=== PATIENT | male | born 1985 | race Caucasian/White ===

== ENCOUNTER 2017-02-22 15:11 | Emergency (ER) | payer BC, MEDICAID ==
[2017-02-22] MEDS ORDERED: Thiamine IV 100 MG, Folic Acid IV* 1 MG, Multiple Vitamin IV ADULT* 10 ML in D5NS 0.9% ... IV ONE (15:57)
[2017-02-22 16:47] LABS: Hematocrit 45 % (42-52); Red Blood Count 4.79 10^6/ul (4.0-5.4)
[2017-02-22 16:48] LABS: ABS Basophils 0.1 10^3/ul (0-0.2); ABS Eosinophils 0 10^3/ul (0-0.6); ABS Lymphocytes 2.6 10^3/ul (1.0-4.8); ABS Monocytes 0.6 10^3/ul (0-0.8); ABS Neutrophils 7.8 10^3/ul (1.5-7.7); ABS Nucleated RBC 0 10^3/ul; Eosinophil % 0.3 % (0-6); Lymphocyte % 23.2 % (25-47); Mean Corpuscular HGB Conc 35 g/dl (31-36); Mean Corpuscular Hemoglobin 33 pg (27-31); Mean Corpuscular Volume 95 fL (80-94); Mean Platelet Volume 7 um3 (7.4-10.4); Nucleated Red Blood Cells % 0; Platelet Count 267 10^3/ul (150-450); Red Cell Distribution Width 13 % (10.5-15)
[2017-02-22 17:35] VITALS: BP 150/97
[2017-02-22 18:55] LABS: Urine Appearance Clear; Urine Blood 1+ (Negative); Urine Color Yellow; Urine Ketones Trace (Negative); Urine Protein Negative (Negative); Urine Specific Gravity 1.013 (1.010-1.030); Urine Urobilinogen Negative (Negative)
[2017-02-22] MEDS ORDERED: LORazepam TAB(*) 1 MG PO ONE ×2 (19:06→19:07)
--- NOTE | 2017-02-22 22:28 | ED ---
Cyrus Sandhu Stephanie, scribed for Arleth Sue MD on 02/22/17 at 1913 . Substance Abuse/Use - HPI Summary HPI Summary: Pt is a 31 y/o M presenting to the ED with ETOH abuse and request for detox. Pt denies SI. He went to [facility] a few months ago to detox but began to drink again soon after. His HR is currently 122 BPM. Pt states that he wants to go home. Mike Garcia is the patient's roommate and brought pt to the ED and will pt pt's ride home. Measured ETOH level is 0.329 in the ED. - History Of Current Complaint Chief Complaint: EDDetoxRequest Stated Complaint: DETOX Time Seen by Provider: 02/22/17 15:57 Hx Obtained From: Patient Onset/Duration of Drug/ETOH Abuse: Hours Ingestion History: Type/Name Of Drug - ETOH Overdose Characteristics: Oral Timing Of Abuse: Binge Use Severity Initially: Moderate Severity Currently: Mild Character: Frustrated Aggravating Factor(s): Nothing Alleviating Factor(s): Nothing Associated Signs And Symptoms: Negative Related Hx: Drug/Alcohol Last Used @ - 02/23/16 - Allergies/Home Medications Allergies/Adverse Reactions: Allergies Allergy/AdvReac Type Severity Reaction Status Date / Time No Known Allergies Allergy Verified 02/22/17 17:42 PMH/Surg Hx/FS Hx/Imm Hx Previously Healthy: No - alcohol abuse and failed rehab Sensory History: Denies: Hx Legally Blind EENT History: Denies: Hx Deafness - Surgical History Surgery Procedure, Year, and Place: none Infectious Disease History: No Infectious Disease History: Denies: Traveled Outside the [place] in Last 30 Days - Family History Known Family History: Positive: Unknown - Pt denies family history when asked, both parents alive and well , Other - alcoholism - Social History Occupation: Employed Part-time - insurance professional Lives: Dormitory/Roommates Alcohol Use: Daily Substance Use Type: Reports: None Hx Tobacco Use: No Review of Systems Positive: Other - tachycardia . Negative: Fever Cardiovascular: Negative Respiratory: Negative Skin: Negative Negative: Slurred Speech Negative: Anxious All Other Systems Reviewed And Are Negative: Yes Physical Exam - Summary Physical Exam Summary: Appearance: well-appearing, no pain distress, Well-nourished, tachycardic, not tremulous Skin: Warm, color reflects adequate perfusion Head: Normal Head/Face inspection Eyes: Conjunctiva clear ENT: Normal inspection Neck: Supple, no nodes, no JVD. Respiratory: Lungs clear, Normal breath sounds, no respiratory distress Cardio: RRR, No murmur, pulses normal, brisk capillary refill Abdomen: soft, nontender Bowel sounds: present Musculoskeletal: Strength Intact/ ROM intact. No calf tenderness. No edema. Neuro: Alert, muscle tone normal, facial symmetry, speech normal, sensory/motor intact, Not tremulous Psychological: Normal, Thoughts are coherent, clinically sober, speech is clear , gait is steady. Triage Information Reviewed: Yes Vital Signs On Initial Exam: Initial Vitals Temp Pulse Resp BP Pulse Ox 98.6 F 135 22 148/106 94 02/22/17 15:15 02/22/17 15:15 02/22/17 15:15 02/22/17 15:15 02/22/17 15:15 Vital Signs Reviewed: Yes - [place] Coma Scale Coma Scale Total: 15 Diagnostics - Vital Signs Vital Signs Temp Pulse Resp BP Pulse Ox 02/22/17 18:00 19 02/22/17 17:00 150/97 02/22/17 16:30 146/103 02/22/17 16:07 98.7 F 138 22 151/99 96 02/22/17 15:15 98.6 F 135 22 148/106 94 - Laboratory Lab Results: Lab Results 02/22/17 02/22/17 02/22/17 Range/Units 16:35 16:35 16:35 WBC 11.0 H (3.5-10.8) 10^3/ul RBC 4.79 (4.0-5.4) 10^6/ul Hgb 16.0 (14.0-18.0) g/dl Hct 45 (42-52) % MCV 95 H (80-94) fL MCH 33 H (27-31) pg MCHC 35 (31-36) g/dl RDW 13 (10.5-15) % Plt Count 267 (150-450) 10^3/ul MPV 7 L (7.4-10.4) um3 Neut % (Auto) 70.7 (38-83) % Lymph % (Auto) 23.2 L (25-47) % [place] % (Auto) 5.0 (1-9) % Eos % (Auto) 0.3 (0-6) % Baso % (Auto) 0.8 (0-2) % Absolute Neuts (auto) 7.8 H (1.5-7.7) 10^3/ul Absolute Lymphs (auto) 2.6 (1.0-4.8) 10^3/ul Absolute Monos (auto) 0.6 (0-0.8) 10^3/ul Absolute Eos (auto) 0 (0-0.6) 10^3/ul Absolute Basos (auto) 0.1 (0-0.2) 10^3/ul Absolute Nucleated RBC 0 10^3/ul Nucleated RBC % 0 Sodium 142 (133-145) mmol/L Potassium 3.6 (3.5-5.0) mmol/L Chloride 103 (101-111) mmol/L Carbon Dioxide 26 (22-32) mmol/L Anion Gap 13 H (2-11) mmol/L BUN 12 (6-24) mg/dL Creatinine 0.94 (0.67-1.17) mg/dL Est GFR ( Amer) 119.6 (>60) Est GFR (Non-Af Amer) 93.0 (>60) BUN/Creatinine Ratio 12.8 (8-20) Glucose 89 (70-100) mg/dL Lactic Acid 3.4 H* (0.5-2.0) mmol/L Calcium 9.0 (8.6-10.3) mg/dL Total Bilirubin 0.50 (0.2-1.0) mg/dL AST 23 (13-39) U/L ALT 16 (7-52) U/L Alkaline Phosphatase 53 (34-104) U/L Total Creatine Kinase 164 (10-223) U/L Total Protein 7.4 (6.4-8.9) g/dL Albumin 4.2 (3.2-5.2) g/dL Globulin 3.2 (2-4) g/dL Albumin/Globulin Ratio 1.3 (1-3) TSH 2.73 (0.34-5.60) mcIU/mL Urine Color Urine Appearance Urine pH (5-9) Ur Specific [place] (1.010-1.030) Urine Protein (Negative) Urine Ketones (Negative) Urine Blood (Negative) Urine Nitrate (Negative) Urine Bilirubin (Negative) Urine Urobilinogen (Negative) Ur Leukocyte Esterase (Negative) Urine WBC (Auto) (Absent) Urine RBC (Auto) (Absent) Urine Bacteria (Absent) Urine Glucose (Negative) Salicylates < 2.50 (<30) mg/dL Urine Opiates Screen (None Detect) Acetaminophen < 15 mcg/mL Ur Barbiturates Screen (None Detect) Ur Phencyclidine Scrn (None Detect) Ur Amphetamines Screen (None Detect) U Benzodiazepines Scrn (None Detect) Urine Cocaine Screen (None Detect) U Cannabinoids Screen (None Detect) Serum Alcohol 329 H (<10) mg/dL 02/22/17 02/22/17 Range/Units 18:27 18:27 WBC (3.5-10.8) 10^3/ul RBC (4.0-5.4) 10^6/ul Hgb (14.0-18.0) g/dl Hct (42-52) % MCV (80-94) fL MCH (27-31) pg MCHC (31-36) g/dl RDW (10.5-15) % Plt Count (150-450) 10^3/ul MPV (7.4-10.4) um3 Neut % (Auto) (38-83) % Lymph % (Auto) (25-47) % [place] % (Auto) (1-9) % Eos % (Auto) (0-6) % Baso % (Auto) (0-2) % Absolute Neuts (auto) (1.5-7.7) 10^3/ul Absolute Lymphs (auto) (1.0-4.8) 10^3/ul Absolute Monos (auto) (0-0.8) 10^3/ul Absolute Eos (auto) (0-0.6) 10^3/ul Absolute Basos (auto) (0-0.2) 10^3/ul Absolute Nucleated RBC 10^3/ul Nucleated RBC % Sodium (133-145) mmol/L Potassium (3.5-5.0) mmol/L Chloride (101-111) mmol/L Carbon Dioxide (22-32) mmol/L Anion Gap (2-11) mmol/L BUN (6-24) mg/dL Creatinine (0.67-1.17) mg/dL Est GFR ( Amer) (>60) Est GFR (Non-Af Amer) (>60) BUN/Creatinine Ratio (8-20) Glucose (70-100) mg/dL Lactic Acid (0.5-2.0) mmol/L Calcium (8.6-10.3) mg/dL Total Bilirubin (0.2-1.0) mg/dL AST (13-39) U/L ALT (7-52) U/L Alkaline Phosphatase (34-104) U/L Total Creatine Kinase (10-223) U/L Total Protein (6.4-8.9) g/dL Albumin (3.2-5.2) g/dL Globulin (2-4) g/dL Albumin/Globulin Ratio (1-3) TSH (0.34-5.60) mcIU/mL Urine Color Yellow Urine Appearance Clear Urine pH 6.0 (5-9) Ur Specific [place] 1.013 (1.010-1.030) Urine Protein Negative (Negative) Urine Ketones Trace H (Negative) Urine Blood 1+ H (Negative) Urine Nitrate Negative (Negative) Urine Bilirubin Negative (Negative) Urine Urobilinogen Negative (Negative) Ur Leukocyte Esterase Negative (Negative) Urine WBC (Auto) Trace(0-5/hpf) (Absent) Urine RBC (Auto) 1+(3-5/hpf) H (Absent) Urine Bacteria Absent (Absent) Urine Glucose Negative (Negative) Salicylates (<30) mg/dL Urine Opiates Screen None detected (None Detect) Acetaminophen mcg/mL Ur Barbiturates Screen None detected (None Detect) Ur Phencyclidine Scrn None detected (None Detect) Ur Amphetamines Screen None detected (None Detect) U Benzodiazepines Scrn None detected (None Detect) Urine Cocaine Screen None detected (None Detect) U Cannabinoids Screen None detected (None Detect) Serum Alcohol (<10) mg/dL Result Diagrams: 02/22/17 16:35 02/22/17 16:35 Lab Statement: Any lab studies that have been ordered have been reviewed, and results considered in the medical decision making process. - EKG 16:33 Cardiac Rate: Tachycardia ST Segment: Non-Specific Ectopy: None EKG Interpretation: ST 115, NL AVIVCT, nl QTc, NSTTW changes Course/Dx - Course Course Of Treatment: Pt will be discharged home with a sober ride home with his roommate. Pt given ativan 2mg po in ED prior to DC and dispensed ativan 2mg po x 1 for home use. ED physician advises him to seek alcohol detox. - Diagnoses Differential Diagnosis/HQI/PQRI: Positive: Alcohol Abuse, Alcohol Withdrawal, Delirium Tremens Provider Diagnoses: Alcohol abuse Discharge - Discharge Plan Condition: Stable Disposition: HOME Patient Education Materials: Abuse of Alcohol (ED), At-Risk Alcohol Use (ED) Forms: *Work Release Referrals: [facility] [Outside] No Primary Care Phys,NOPCP [Primary Care Provider] - The documentation as recorded by the Cyrus reddy Stephanie accurately reflects the service I personally performed and the decisions made by , Arleth Sue MD.
== END 2017-02-22 19:57 | disposition home or self-care (01) ==
LOC: ED 15:11
DX: F10.10 Alcohol abuse, uncomplicated (principal); R00.0 Tachycardia, unspecified; Y90.8 Blood alcohol level of 240 mg/100 ml or more
CPT/HCPCS: 36415; 80053; 80307; 80320; 80329; 81003; 81015; 82550; 83605; 84443; 85025; 93005; 99283; A9270-GY; G0480; J3411

== ENCOUNTER 2018-08-28 22:25 | Emergency (ER) | payer SELFPAY ==
[2018-08-28] MEDS ORDERED: NS 0.9% 1000 ML** 2,000 ML IV ONE (22:39)
--- NOTE | 2018-08-28 23:10 | ED ---
Abdominal Pain/Male - HPI Summary HPI Summary: The pt is a 32 y/o M presenting to [facility] accompanied by his friend with a CC of abdominal pain. He states that he has abdominal pains from drinking too much and he has been unable to get into a treatment center for alcohol abuse. He stated that he was going to be called tomorrow but couldnt wait any longer. He is currently intoxicated and rates the pain in his abdomen as a 6/10 in severity. 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 He states that he drinks excessively while he is at his house. He denies any CP, SOB, cough, fever, headaches, N/V/D and rashes. He has a prescription for Lorazepam and is currently waiting for a refill. He has no aggravating or alleviating symptoms. - History of Current Complaint Chief Complaint: EDAbdPain Stated Complaint: DETOX PER PT Time Seen by Provider: 08/28/18 22:54 Hx Obtained From: Patient, Family/Polymerization Engineer - roommate Onset/Duration: Sudden Onset, Still Present Timing: Constant Severity Initially: Mild Severity Currently: Moderate Pain Intensity: 6 Pain Scale Used: 0-10 Numeric Location: Diffuse Radiates: No Aggravating Factor(s): Other: - alcohol Alleviating Factor(s): Nothing Associated Signs And Symptoms: Positive: Negative - headache, rashes, Other - Pt repoted that the pain occurs when he drinks. Negative: Diaphoresis, Fever, Cough, Chest Pain, Nausea, Vomiting, Diarrhea - Allergies/Home Medications Allergies/Adverse Reactions: Allergies Allergy/AdvReac Type Severity Reaction Status Date / Time No Known Allergies Allergy Verified 08/28/18 22:29 Home Medications: Home Medications NK [No Home Medications Reported] 08/28/18 [History Confirmed 08/28/18] PMH/Surg Hx/FS Hx/Imm Hx Previously Healthy: Yes Endocrine/Hematology History: Denies: Hx Diabetes Cardiovascular History: Denies: Hx Hypertension Respiratory History: Denies: Hx Asthma Sensory History: Denies: Hx Legally Blind, Hx Deafness Opthamlomology History: Denies: Hx Legally Blind - Surgical History Surgical History: Yes Surgery Procedure, Year, and Place: wisdom teeth removal - Immunization History Immunizations Up to Date: Yes Infectious Disease History: No Infectious Disease History: Denies: Traveled Outside the [place] in Last 30 Days - Family History Known Family History: Positive: Other - alcoholism Negative: Cardiac Disease, Hypertension - Social History Occupation: Employed Full-time Lives: Dormitory/Roommates Alcohol Use: Daily Hx Substance Use: No Substance Use Type: Reports: None Hx Tobacco Use: No Smoking Status (MU): Unknown if Ever Smoked Review of Systems Negative: Fever Negative: Chest Pain Negative: Shortness Of Breath, Cough Positive: Abdominal Pain. Negative: Vomiting, Diarrhea, Nausea Negative: Rash Negative: Headache All Other Systems Reviewed And Are Negative: Yes Physical Exam - Summary Physical Exam Summary: Appearance: Appears generally well, moderately intoxicated with slurred speech and delayed reactions Skin: Warm, dry, no obvious rash Eyes: sclera anicteric, no conjunctival pallor ENT: mucous membranes moist, pharynx appears normal Neck: Supple, nontender Respiratory: Clear to auscultation, no signs of respiratory distress Cardiovascular: Normal S1, S2. No murmurs. Normal distal pulses in tibial and radial bilaterally. Abdomen: Soft, nontender, normal active bowel sounds present Musculoskeletal: Normal, Strength/ROM Intact Neurological: A&Ox3, awake and alert, mentation is normal, speech is fluent and appropriate Psychiatric: affect is normal, does not appear anxious or depressed Triage Information Reviewed: Yes Vital Signs On Initial Exam: Initial Vitals Temp Pulse Resp BP Pulse Ox 97.8 F 121 17 136/97 96 08/28/18 22:28 08/28/18 22:28 08/28/18 22:28 08/28/18 22:28 08/28/18 22:28 Vital Signs Reviewed: Yes Diagnostics - Vital Signs Vital Signs Temp Pulse Resp BP Pulse Ox 08/28/18 22:28 97.8 F 121 17 136/97 96 - Laboratory Result Diagrams: 08/28/18 23:08 08/28/18 23:08 Lab Statement: Any lab studies that have been ordered have been reviewed, and results considered in the medical decision making process. Abdominal Pain Male Course/Dx - Course Course Of Treatment: The pt is a 32 y/o M presenting to [facility] accompanied by his friend with a CC of abdominal pain. He states that he has abdominal pains from drinking too much and he has been unable to get into a treatment center for alcohol abuse. His PE found that he Appears generally well, moderately intoxicated with slurred speech and delayed reactions. His serum alcohol level was a 464. He will be discharged from the hospital with a Dx of alcohol intoxication and alcohol abuse. His roommate has agreed to take him home. - Diagnoses Provider Diagnoses: Alcohol intoxication, Alcohol abuse Discharge - Sign-Out/Discharge Documenting (check all that apply): Patient Departure - discharge Patient Received Moderate/Deep Sedation with Procedure: No - Discharge Plan Condition: Good Disposition: HOME Patient Education Materials: Alcohol Intoxication (ED), Abuse of Alcohol (ED) Referrals: [facility] [Outside] - Billing Disposition and Condition Condition: GOOD Disposition: Home - Attestation Statements Document Initiated by Carlottaibe: Yes Documenting Scribe: Aguilar Mcintosh Provider For Whom Patrick is Documenting (Include Credential): Michael Delgado MD Scribe Attestation: Aguilar Sandhu scrsvetaed for Michael Delgado MD on 08/29/18 at 0149. Scribe Documentation Reviewed: Yes Provider Attestation: The documentation as recorded by the Aguilar reddy accurately reflects the service I personally performed and the decisions made by Michael olguin MD Status of Scribe Document: Viewed
[2018-08-28 23:14] LABS: ABS Lymphocytes 2.7 10^3/ul (1.0-4.8); ABS Monocytes 0.7 10^3/ul (0-0.8); ABS Neutrophils 4.2 10^3/ul (1.5-7.7); Eosinophil % 0.6 %; Hematocrit 47 % (42-52); Hemoglobin 16.7 g/dL (14.0-18.0); Lymphocyte % 35.6 %; Mean Corpuscular HGB Conc 35 g/dL (31-36); Mean Corpuscular Hemoglobin 34 pg (27-31); Mean Corpuscular Volume 95 fL (80-94); Mean Platelet Volume 6.6 fL (7.4-10.4); Platelet Count 297 10^3/uL (150-450); Red Blood Count 4.96 10^6 /uL (4.18-5.48); Red Cell Distribution Width 13 % (10-15); White Blood Count 7.7 10^3/uL (3.5-10.8)
[2018-08-28] MEDS ORDERED: Ondansetron INJ* 2 MG/ML VIAL IV ONE (23:20)
[2018-08-28 23:31] LABS: Albumin 4.2 g/dL (3.2-5.2); Albumin/Globulin Ratio 1.3 (1-3); Calcium 9.1 mg/dL (8.6-10.3); EGFR African American 90.4 (>60); EGFR Non-African American 74.7 (>60); Globulin 3.2 g/dL (2-4); Total Bilirubin 0.5 mg/dL (0.2-1.0); Total Protein 7.4 g/dL (6.4-8.9)
[2018-08-28 23:57] VITALS: BP 0/0
== END 2018-08-28 23:56 | disposition home or self-care (01) ==
LOC: ED 22:25
DX: F10.229 Alcohol dependence with intoxication, unspecified (principal)
CPT/HCPCS: 36415; 80053; 80320; 83690; 85025; 96361; 96374; 99283; G0480; J2405

== ENCOUNTER 2019-04-13 12:22 | Observation (INO) | payer OTHER ==
[2019-04-13] MEDS ORDERED: Ondansetron INJ* 2 MG/ML VIAL IV ONE (13:39)
[2019-04-13] MEDS ORDERED: NS 0.9% 1000 ML** 1,000 ML IV ONE (13:39)
--- NOTE | 2019-04-13 14:05 | ED ---
Abdominal Pain/Male - HPI Summary HPI Summary: 33 y/o male w no significant past medical history presents with right lower quadrant pain for 48 hours. Patient states he had the onset of right lower quadrant pain associated with anorexia and nausea. Patient had one episode of vomiting last night. Patient reports feeling warm at home although no definite fevers. No diarrhea. Patient went to urgent care today, was sent ED for further workup. Patient does report one episode of dysuria, denies testicular or penile pain or discharge. Patient is a smoker, denies marijuana use. No surgeries, no fam hx. Pain worse when ambulating, coughing or moving. Pain better at rest. - History of Current Complaint Chief Complaint: EDAbdPain Stated Complaint: ABD PAIN PER PT Time Seen by Provider: 04/13/19 13:33 Hx Obtained From: Patient Onset/Duration: Lasting Hours Timing: Lasting Hours Severity Currently: Severe Pain Intensity: 8 Pain Scale Used: 0-10 Numeric Location: Discrete At: RLQ Associated Signs And Symptoms: Positive: Fever - tactile, Urinary Symptoms - dysuria, Nausea, Other - no testicular pain or penile pain or discharge. Negative: Diarrhea, Penile Discharge - or penile pain - Allergies/Home Medications Allergies/Adverse Reactions: Allergies Allergy/AdvReac Type Severity Reaction Status Date / Time No Known Allergies Allergy Verified 04/13/19 12:41 Home Medications: Home Medications Biotin 1 mg PO DAILY 04/13/19 [History Confirmed 04/13/19] Brain Elevate 1 tab PO DAILY 04/13/19 [History Confirmed 04/13/19] Cholecalciferol TAB* [Vitamin D TAB*] 1,000 unit PO DAILY 04/13/19 [History Confirmed 04/13/19] LORazepam TAB(*) [Ativan 1 MG TAB (*)] 1 mg PO BID PRN 04/13/19 [History Confirmed 04/13/19] Milk Thistle 150 mg PO DAILY 04/13/19 [History Confirmed 04/13/19] Multivitamins/Minerals TAB* [Theragran/minerals TAB*] 1 tab PO DAILY 04/13/19 [ History Confirmed 04/13/19] Omeprazole CAP(NF) [PriLOSEC CAP(NF)] 10 mg PO DAILY 04/13/19 [History Confirmed 04/13/19] Vitamin B Complex CAP* [B Complex CAP*] 1 cap PO DAILY 04/13/19 [History Confirmed 04/13/19] PMH/Surg Hx/FS Hx/Imm Hx Endocrine/Hematology History: Denies: Hx Diabetes Cardiovascular History: Denies: Hx Hypertension Respiratory History: Denies: Hx Asthma Sensory History: Denies: Hx Legally Blind, Hx Deafness Opthamlomology History: Denies: Hx Legally Blind - Surgical History Surgery Procedure, Year, and Place: wisdom teeth removal Infectious Disease History: No Infectious Disease History: Denies: Traveled Outside the [place] in Last 30 Days - Family History Known Family History: Positive: Other - alcoholism Negative: Cardiac Disease, Hypertension - Social History Alcohol Use: Occasionally Hx Substance Use: No Substance Use Type: Reports: None Hx Tobacco Use: No Smoking Status (MU): Light Every Day Tobacco Smoker Review of Systems Positive: Fever - tactile Positive: Abdominal Pain, Vomiting, Nausea. Negative: Diarrhea Genitourinary: Other - no testicular pain or penile pain or discharge Positive: dysuria All Other Systems Reviewed And Are Negative: Yes Physical Exam - Summary Physical Exam Summary: Constitutional: Well-developed, Well-nourished, Alert. (-) Distressed Skin: Warm, Dry HENT: Normocephalic; Atraumatic Eyes: Conjunctiva normal Neck: Musculoskeletal ROM normal neck. (-) JVD, (-) Stridor Cardio: Rhythm regular, rate normal, Heart sounds normal; Intact distal pulses; Radial pulses are 2+ and symmetric. (-) Murmur Pulmonary/Chest wall: Effort normal. (-) Respiratory distress, (-) Wheezes, (-) Rales Abd: Soft, (+) RLQ tenderness, (-) Distension, voluntary guarding, (-) Rebound , +obturator sign Musculoskeletal: (-) Edema Neuro: Alert, Oriented x3 Psych: Mood and affect Normal Triage Information Reviewed: Yes Vital Signs On Initial Exam: Initial Vitals Temp Pulse Resp BP Pulse Ox 99 F 97 18 124/78 96 04/13/19 12:38 04/13/19 12:38 04/13/19 12:38 04/13/19 12:38 04/13/19 12:38 Vital Signs Reviewed: Yes Procedures - Sedation Patient Received Moderate/Deep Sedation with Procedure: No Diagnostics - Vital Signs Vital Signs Temp Pulse Resp BP Pulse Ox 04/13/19 12:38 99 F 97 18 124/78 96 - Laboratory Result Diagrams: 04/13/19 13:45 04/13/19 13:45 Lab Statement: Any lab studies that have been ordered have been reviewed, and results considered in the medical decision making process. - CT CT ABD/PEL CT Interpretation Completed By: Radiologist Summary of CT Findings: IMPRESSION: IMAGING COMPATIBLE WITH ACUTE APPENDICITIS. THE APPENDIX IS INFERIORLY DIRECTED TOWARDS. THE RIGHT INGUINAL REGION (SEE ANNOTATED CORONAL IMAGE). THIS REPORT WAS REVIEWED BY ED PHYSICIAN. Re-Evaluation - Re-Evaluation First Eval Re-Evaluation Time: 17:35 Comment: Workup and plan of admission discussed, patient aware of appendicits and agreeable with admission. Abdominal Pain Male Course/Dx - Course Course Of Treatment: 33 y/o male p/w RLQ pain. - exam with right lower quadrant tenderness, voluntary guarding, positive obturator sign. Labs notable for normal white count, elevated CRP. CT scan of abdomen shows appendicitis. Patient given 1 dose of Zosyn, surgery to admit. - Diagnoses Provider Diagnoses: Appendicitis, acute - Provider Notifications Discussed Care Of Patient With: Timmy Cintron Time Discussed With Above Provider: 17:33 Instructed by Provider To: Other - Patient's case was discussed with Dr. Cintron, patient to be admitted by Dr. Cintron with surgery to be likely done tomorrow morning Discharge ED - Sign-Out/Discharge Documenting (check all that apply): Patient Departure - admit - Discharge Plan Condition: Stable Disposition: ADMITTED TO [facility] Referrals: Syed Rouse MD [Primary Care Provider] - - Billing Disposition and Condition Condition: STABLE Disposition: Admitted to [facility] - Attestation Statements Document Initiated by Patrick: Yes Documenting Scribe: AGATA WOODWARD Provider For Whom Patrick is Documenting (Include Credential): BERNARD MEHTA MD Scribe Attestation: I, AGATA WOODWARD, scribed for BERNARD MEHTA MD on 04/13/19 at 1805. Scribe Documentation Reviewed: Yes Provider Attestation: The documentation as recorded by the AGATA reddy accurately reflects the service I personally performed and the decisions made by me, BERNARD MEHTA MD Status of Scribe Document: Viewed
[2019-04-13] MEDS ORDERED: Ketorolac INJ* 30 MG/ML 1 ML VIAL IV ONE (14:08)
[2019-04-13 14:17] LABS: ABS Eosinophils 0.1 10^3/ul (0-0.6); ABS Lymphocytes 2.2 10^3/ul (1.0-4.8); ABS Monocytes 0.7 10^3/ul (0-0.8); ABS Neutrophils 6.6 10^3/ul (1.5-7.7); Eosinophil % 1.3 %; Hematocrit 40 % (42-52); Hemoglobin 14.1 g/dL (14.0-18.0); Lymphocyte % 22.9 %; Mean Corpuscular HGB Conc 35 g/dL (31-36); Mean Corpuscular Hemoglobin 33 pg (27-31); Mean Corpuscular Volume 94 fL (80-94); Mean Platelet Volume 7.6 fL (7.4-10.4); Nucleated Red Blood Cells % 0.1; Platelet Count 252 10^3/uL (150-450); Red Blood Count 4.23 10^6 /uL (4.18-5.48); Red Cell Distribution Width 13 % (10-15); White Blood Count 9.7 10^3/uL (3.5-10.8)
[2019-04-13 14:34] LABS: Albumin 4.1 g/dL (3.2-5.2); Albumin/Globulin Ratio 1.5 (1-3); EGFR Non-African American 94.2 (>60); Globulin 2.8 g/dL (2-4); Potassium 3.8 mmol/L (3.5-5.0); Total Bilirubin 0.8 mg/dL (0.2-1.0); Total Protein 6.9 g/dL (6.4-8.9)
[2019-04-13 14:50] LABS: C Reactive Protein 70.26 mg/L (<8.01)
[2019-04-13 15:25] LABS: Urine Appearance Clear; Urine Bilirubin Negative (Negative); Urine Blood Negative (Negative); Urine Color Yellow; Urine Glucose Negative (Negative); Urine Ketones Negative (Negative); Urine Nitrite Negative (Negative); Urine Protein Negative (Negative); Urine Specific Gravity 1.004 (1.010-1.030); Urine Urobilinogen Negative (Negative)
[2019-04-13] MEDS ORDERED: Iohexol 300* (CONTRAST) 10 ML SDV IV ONE (15:55)
[2019-04-13] MEDS ORDERED: Piperacillin/Tazobac ADVAN(*) 3.375 GM in NS 0.9% 100 ML* 100 ML IVPB ONE (17:34)
[2019-04-13] MEDS ORDERED: Docusate CAP* 100 MG PO PRN (18:50)
[2019-04-13] MEDS ORDERED: HYDROcodone/ACETAMIN 5-325 MG* 1 TAB PO PRN (18:50)
[2019-04-13] MEDS ORDERED: Acetaminophen TAB* 325 MG PO PRN (18:50)
[2019-04-13] MEDS: NS 0.9% 1000 ML** 1,000 ML IV SCH (19:30)
[2019-04-13] MEDS: HYDROmorphone INJ* 0.5 MG/0.5 ML SYRINGE IV SLOW PU PRN ×3 (19:42→22:30)
--- NOTE | 2019-04-13 21:27 | HP ---
CC: [facility]; Dr. Rouse HISTORY AND PHYSICAL: DATE OF ADMISSION: 04/13/19 REASON FOR ADMISSION: Acute appendicitis. HISTORY OF PRESENT ILLNESS: Mr. To Boggs is a 33-year-old gentleman, who on Tuesday evening de veloped some right-sided abdominal discomfort associated with abdominal bloating and anorexia. He luciano d no vomiting or fevers. He has had no diarrhea. He on developed worsening right lower stephen drant abdominal pain and went home from work early, restarted to feel better later in the evening, bu t he did eat a meal and threw it up. Over the course of today, he is having right lower quadrant abdominal pain that is not improving and presented to the emergency room later this afternoon. He was noted to be afebrile. Laboratory josse p included a white blood cell count of 9.7 without shift. Electrolytes, BUN and creatinine were all within normal limits. He had a C-reactive protein, however it was 70.26. He underwent a CT scan of the abdomen and pelvis. I did review these images. These show findings con sistent with acute appendicitis with a mildly thickened appendix, but without evidence of significant periappendiceal inflammation, fluid abscess or findings to suggest acute perforation. Surgical consultation has been obtained. He is being admitted to the surgical service. Also of note, he gives a history of right lower quadrant abdominal pain of similar nature but not as equivalent duration or severity as this presentation, but he has not sought care for this. PAST MEDICAL HISTORY: Gastroesophageal reflux disease, history of alcohol abuse, anxiety. PAST SURGICAL HISTORY: Oral surgery only. MEDICATIONS: Include: 1. Ativan 1 mg p.o. b.i.d. p.r.n. 2. Multivitamins. 3. Prilosec 10 mg daily. FAMILY HISTORY: No history of colon cancer. No history of coronary artery disease or diabetes. 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 He does not use tobacco. He drinks alcohol on a johana y rare infrequent basis. He denies use of illicit drugs. REVIEW OF SYSTEMS: Cerebrovascular: No dizziness or visual disturbances. Cardiovascular: No chest pain or shortness of breath. Pulmonary: No wheezing or hemoptysis. GI: As above. He gives histor y of having several episodes of similar right-sided abdominal pain, which resolved spontaneously and not quite as severe as this admission. : No urgency or hematuria. PHYSICAL EXAMINATION GENERAL: Well-developed, slightly overweight male with normal attention and grooming. He is awake, alert, and oriented and very comfortable. VITAL SIGNS: His temperature is 98.0, blood pressure 129/85, pulse rate 100. HEENT: Sclerae are anicteric. Oral mucosa is slightly dry. LUNGS: Clear to auscultation with normal respiratory effort. HEART: Regular rate and rhythm without murmurs, rubs, or gallops. ABDOMEN: Soft, slightly distended. There are no prior surgical incisions or hernias. He had dimini shed bowel sounds throughout. He has tenderness in the right lower quadrant without rebound, guardin g, of peritoneal irritation. I appreciate no hernias. EXTREMITIES: Without cyanosis or edema. PSYCHIATRIC: He is awake, alert, and oriented x3. He has normal judgment and insight. IMPRESSION: Acute appendicitis by CT scan. This shows mildly thickened appendix extending down int o the pelvis without evidence of significant periappendiceal inflammation or fluid or findings to sug gest acute perforation. There is no appendicolith. I discussed these findings with him. We discussed options of antibiotic treatment versus surgery and both of their risks and benefits. After our discussion, he would like to proceed with admission and planned laparoscopic appendectomy. I discussed all of the procedure with him, and the risks of, but not limited to, bleeding, infection, intra-abdominal abscess information, injury to peritoneal and retroperitoneal structures, possibilit y of an open procedure, appendiceal stump leak, sepsis and the risks of anesthesia were all explained . We also discussed hospital stays, recovery times, and expected return to work. PLAN: 1. The patient will be admitted to the surgical service on the short-stay unit. 2. He will be kept n.p.o. after midnight. We are planning with surgery first thing in the morning a s the operating room has a prolonged case that is being started. 3. Planned OR in the morning. 4. He will be started on IV Zosyn. [id number]/[facility] #: [id number]
[2019-04-13] MEDS: Piperacillin/Tazobactam VIAL*) 3.375 GM in NS 0.9% 100 ML* 100 ML IVPB SCH (22:25)
[2019-04-14] MEDS: HYDROmorphone INJ* 0.5 MG/0.5 ML SYRINGE IV SLOW PU PRN ×2 (00:14→06:19)
[2019-04-14] MEDS: NS 0.9% 1000 ML** 1,000 ML IV SCH (03:42)
[2019-04-14] MEDS: Piperacillin/Tazobactam VIAL*) 3.375 GM in NS 0.9% 100 ML* 100 ML IVPB SCH (06:13)
[2019-04-14] MEDS ORDERED: Bupivacaine 0.25% SDV* 30 ML ONE (07:33)
--- NOTE | 2019-04-14 07:50 | OP ---
Operative Report - Blank - Operative Report Date of Operation: 04/14/19 Note: OPERATIVE REPORT Pre-op: Acute appendicitis Post-Op: Acute appendicitis Procedure:Laparoscopic appendectomy Surgeon: MD Saida Asst: none Anes: general with local, Dr. Nieto IVF:800 cc crystalloid EBL:min Specimen: Appendix Drain: none Wound: 3 Findings:Acute suppurative appendicitis, no perforation or abscess To PACU
[2019-04-14] MEDS ORDERED: Midazolam* 1 MG/ML 5 ML VIAL (5 MG) ONE (08:05)
[2019-04-14] MEDS ORDERED: fentaNYL* 50 MCG/ML 2 ML VIAL (100 MCG VIAL) ONE ×2 (08:14→08:40)
[2019-04-14] MEDS ORDERED: Midazolam* 1 MG/ML 2 ML VIAL (2 MG) ONE (08:15)
[2019-04-14] MEDS ORDERED: Rocuronium* 10 MG/ML VIAL ONE (08:27)
[2019-04-14] MEDS ORDERED: Dexamethasone IV* 4 MG/ML 1 ML (4 MG) ONE (08:28)
[2019-04-14] MEDS ORDERED: Ketorolac INJ* 30 MG/ML 1 ML VIAL ONE (08:28)
[2019-04-14] MEDS ORDERED: Propofol* 10 MG/ML 20 ML BTL ONE (08:28)
[2019-04-14] MEDS ORDERED: Ondansetron INJ* 2 MG/ML VIAL ONE (08:28)
[2019-04-14] MEDS ORDERED: Succinylcholine* 20 MG/ML 10 ML VIAL ONE (08:28)
[2019-04-14] MEDS ORDERED: Lidocaine 2% PF * 5 ML VIAL ONE (08:28)
[2019-04-14] MEDS ORDERED: HYDROmorphone INJ1* 1 MG/ML SYRINGE ONE (08:53)
[2019-04-14] MEDS ORDERED: Sugammadex * 500 MG/5 ML VIAL IV PUSH ONE (08:56)
[2019-04-14] MEDS ORDERED: DiMENhydriNATE IV* 50 MG/ML VIAL IV PUSH PRN (09:22)
[2019-04-14] MEDS ORDERED: Naloxone* 0.4 MG/ML 1 ML VIAL IV PRN (09:22)
[2019-04-14] MEDS ORDERED: HYDROmorphone INJ1* 1 MG/ML SYRINGE IV PRN (09:22)
[2019-04-14] MEDS ORDERED: oxyCODONE/Acetamin 5/325 MG* TAB ONE ×2 (09:34→09:54)
[2019-04-14] MEDS: oxyCODONE/Acetamin 5/325 MG* TAB PO PRN ×2 (09:35→09:55)
[2019-04-14 09:56] VITALS: BP 106/66
--- NOTE | 2019-04-14 15:43 | OP ---
DATE OF OPERATION: 04/14/19 - ROOM #332 DATE OF : 83 SURGEON: Timmy Cintron MD CONTROL DIRECTOR: None. ANESTHESIOLOGIST: Dr. Nieto. ANESTHESIA: General with local. PRE-OP DIAGNOSIS: Acute appendicitis. POST-OP DIAGNOSIS: Acute suppurative appendicitis. OPERATIVE PROCEDURE: Laparoscopic appendectomy. BRIEF HISTORY: Mr. To Boggs is a 33-year-old gentleman who presented to the emergency room last evening with 48 hours of right lower quadrant abdominal discomfort. He did have normal white blood cell counts and mild tenderness in the right lower quadrant. CT scan had showed findings consistent with early appendicitis. He is now planned to be taken to the operating room. The risks, benefits and alternatives were discussed in the preoperatively transcribed history and physical. FINDINGS: Acute suppurative appendicitis without perforation, gangrene or abscess. ESTIMATED BLOOD LOSS: Minimal. IV FLUIDS: 800 cc of Crystalloid. SPECIMENS: Appendix. WOUND CLASSIFICATION: 3. DRAINS: None. COMPLICATIONS: None. DESCRIPTION OF PROCEDURE: Written informed consent was obtained, the patient was marked with indelible ink and preoperative antibiotics were administered. The patient was taken to the operating room and placed in a supine position. Sequential compression devices with warming blanket were applied. General anesthesia was administered and the abdomen was prepped and draped in the usual sterile fashion. Time-out verification was completed. A small transverse incision was made just above the umbilicus and the peritoneal cavity was entered under direct vision and a 12 mm blunt port was inserted and the abdomen was insufflated to 15 mmHg. Under direct vision, a 5 mm left lower quadrant port and a second 5 mm suprapubic port were placed. There was a small amount of turbid fluid in the right lower quadrant in the pelvis, but no evidence of purulence or peritonitis. The terminal ileum was normal. The cecum was unremarkable. The appendix was noted laterally extending down towards the pelvis and was mildly suppuratively inflamed with an edematous mesentery, but no evidence of gangrene or perforation or abscess formation. The mesoappendix was divided sequentially from the tip to the base with the LigaSure device. There were some peritoneal attachments laterally that I divided to mobilize the appendix and cecum up into view. The base of the appendix and the cecum were normal. A squires load of 45-mm Endo-HANK stapler was used to divide the appendix at its base and this was placed in an Endo-catch bag and brought out through the umbilical incision. Staple line was evaluated and was intact without bleeding. The right lower quadrant and pelvis were irrigated. Hemostasis was assured. All ports were removed under direct vision of the camera. The umbilicus fascia was closed with interrupted 0 Vicryl suture. The skin at all 3 incisions was approximated with subcuticular 4-0 Vicryl sutures and Steri-Strips were applied. The patient tolerated the procedure well. He was taken to the recovery room in stable condition. [id number]/[facility] #: [id number] [facility]
== END 2019-04-14 10:00 | disposition home or self-care (01) ==
LOC: ED 12:22 → SSU 18:50
PROVIDERS: ADMIT Surgery; ATTEND Surgery
DX: K35.80 Unspecified acute appendicitis (principal); R11.2 Nausea with vomiting, unspecified; R10.9 Unspecified abdominal pain; F17.210 Nicotine dependence, cigarettes, uncomplicated; K21.9 Gastro-esophageal reflux disease without esophagitis; F41.9 Anxiety disorder, unspecified; Z79.899 Other long term (current) drug therapy
CPT/HCPCS: 36415; 74177; 80053; 81003; 83690; 85025; 86140; 96365; 96375; 99284; A9270-GY; G0378; J0330; J1100; J1170; J1885; J2250; J2405; J2543; J2704; J3010; J3490; Q9967